=== PATIENT | female | born 1995 | race Asian ===

== ENCOUNTER 2018-08-12 00:26 | Observation (INO) | payer SELFPAY ==
[2018-08-12] VITALS (12 sets, daily range): BP systolic 92–120; BP diastolic 39–63; PULSE 66–89; TEMP 97.9–98.9
[~2018-08-12] VITALS: Ht 172.7 cm; Wt 87.8 kg
[2018-08-12 00:46] LABS: BASO # 0.1 (0.0-0.2); BASO % 0.3 % (0.0-2.0); EOS # 0.3 (0.0-0.7); EOS % 1.4 % (0-4.0); GRAN # 13.7 (1.4-6.5); GRAN % 77.8 % (42.2-75.2); HEMATOCRIT 40.9 % (37.0-47.0); HEMOGLOBIN 13.3 g/dl (12.5-16.0); LYMPH # 2.8 (1.2-3.4); LYMPH % 15.8 % (20.0-51.0); MEAN CELL VOLUME 85 fl (80.0-100.0); MEAN CORPUSCULAR HEMOGLOBIN 28 pg (27.0-31.0); MEAN CORPUSCULAR HGB CONC 33 g/dl (33.0-37.0); MEAN PLATELET VOLUME 10.8 fl (7.4-10.4); MONO # 0.8 (0.1-0.6); MONO % 4.4 % (1.7-9.3); PLATELET COUNT 181 K/mm3 (130-400); RED BLOOD COUNT 4.82 M/mm3 (4.10-5.30); REDCELL DISTRIBUTION WIDTH-CV 13.7 % (11.5-14.5)
[2018-08-12 01:01] LABS: ALBUMIN 3.6 gm/dL (3.5-5.0); BILIRUBIN,TOTAL 0.2 mg/dL (0.0-1.0); CALCIUM 8.6 mg/dL (8.4-10.2); CREATININE, serum 0.65 (0.52-1.25); POTASSIUM 3.7 mmol/L (3.4-5.0); TOTAL PROTEIN 6.6 gm/dL (6.4-8.2)
[2018-08-12 01:08] LABS: C-REACTIVE PROTEIN 0.5 mg/dL (0.0-0.9)
[2018-08-12 02:38] LABS: COLLECTION METHOD CLEAN CATCH
[2018-08-12 02:43] LABS: MUCOUS Present /lpf; PH 6 (5-8); URINE APPEARANCE Clear; URINE BACTERIA None Seen /hpf; URINE BILIRUBIN Negative (NEGATIVE); URINE BLOOD Negative (NEGATIVE); URINE COLOR Straw; URINE GLUCOSE Negative (NEGATIVE); URINE KETONE Trace (NEGATIVE); URINE LEUKOCYTE ESTERASE Negative (NEGATIVE); URINE NITRATE Negative (NEGATIVE); URINE PROTEIN(semi-quant) Negative (NEGATIVE); URINE RBC 0-2 /hpf; URINE UROBILINOGEN Negative (NEGATIVE)
--- NOTE | 2018-08-12 06:38 | NUR ---
appears to be dozing, in bed with eyes closed, resp quiet and easy, bedside shift report received from ARTEM Box
--- NOTE | 2018-08-12 07:15 | NUR ---
resting in bed, awakened and full assessment completed, see interventions for further info, Dr Pelaez was in to see patient and consent now signed, up to bathroom and voided qs, back to bed and ready for surgery
--- NOTE | 2018-08-12 07:33 | NUR ---
to surgery per bed
--- NOTE | 2018-08-12 07:50 | NUR ---
report now called to KELSEY Mosley
--- NOTE | 2018-08-12 09:30 | NUR ---
returned to room per bed from PACU, awake and alert but sleepy, IV infusing per dial-a-flow set at 60ml/hr, O2 sat 100% on room air, abdomen with 3 lap sites with bandaids and are CD&I, encouraged to rest, family at bedside
--- NOTE | 2018-08-12 09:45 | NUR ---
sleeping between checks
--- NOTE | 2018-08-12 10:15 | NUR ---
awake and needs to void, assisted up and into bathroom and voided qs
--- NOTE | 2018-08-12 10:45 | NUR ---
appears to be dozing, lying on left side, resp quiet and easy
--- NOTE | 2018-08-12 12:14 | NUR ---
continues to sleep between checks, arouses easily an denies needs
--- NOTE | 2018-08-12 13:40 | NUR ---
more awake now and asking about ordering something to eat, instructed on ordering and verbalizes understanding
--- NOTE | 2018-08-12 14:20 | NUR ---
was unable to order due to phone not being plugged in, this was resolved and instructed her she could call at any time
--- NOTE | 2018-08-12 14:59 | NUR ---
high worker met with patient and her two sisters to discuss discharge planning. Patient states she moved to [place] one year ago, from [place], and lives with her sisters. Patient states that she does not have a primary care provider and has not accessed care while in [place]. Worker spoke with financial counselor, Rosa Maria, who will meet with patient on 08/13/18. Patient plans to discharge on 08/13/18 and does not anticipate discharge needs. Will follow and assist with medications as needed.
--- NOTE | 2018-08-12 15:30 | NUR ---
appears to be dozing again, had something to eat and tolerated well
--- NOTE | 2018-08-12 18:15 | NUR ---
c/o some pain/discomforot and medicated with hydrocodone 5mg 1 tab, denies other needs
--- NOTE | 2018-08-12 19:12 | NUR ---
bedside shift report given to ARTEM Luke
[2018-08-13 00:16] VITALS: BP 119/54; PULSE 80; TEMP 98.5
[2018-08-13 03:30] VITALS: BP 115/59; PULSE 95; TEMP 98.9
[2018-08-13 07:40] VITALS: BP 99/59; PULSE 65; TEMP 98.3
--- NOTE | 2018-08-13 07:44 | NUR ---
report from Marly KOCH
[2018-08-13] MEDS ORDERED: NORCO 325 MG-51 TAB PO (08:02)
--- NOTE | 2018-08-13 09:16 | NUR ---
PATIENT RESSTING IN BED DOES NOT WANT TO BE BOTHERED AND JUST SLEEP. FAMILY AT BEDSIDE SLEEPING. DISCAHRGE ORDERS RECIEVED AND APPOINTMENTS MADE.
[2018-08-13 11:32] VITALS: BP 90/30; PULSE 96; TEMP 98.5
--- NOTE | 2018-08-13 13:33 | NUR ---
Initial visit; Patient thanked [employer]per for looking in on her, offering spiritual care and God's blessings.
--- NOTE | 2018-08-13 13:44 | NUR ---
REVIEWED DISCHARGE INSTRUCTIONS WITH PT. QUESTIONS ANSWERED. PT WALKED OUT TO POV.
== END 2018-08-13 13:47 | disposition home or self-care (01) ==
LOC: COL.ER 00:26 → JCC 03:29
PROVIDERS: Nurse Practitioner; ADMIT Surgery
DX: K35.80 Unspecified acute appendicitis (principal)
CPT/HCPCS: G0378; J0295; J0690; J1100; J1170; J1885; J2270; J2405; J2550; J2704; J2710; J2765; J3010; J7030; Q9967